=== PATIENT | female | born 1950 | race Caucasian/White ===

== ENCOUNTER 2017-02-27 08:18 | Inpatient (IN) | payer OTHER ==
[2016-12-23 09:45] VITALS: BMI 41.0
[2016-12-23 10:00] VITALS: BMI 41.0
--- NOTE | 2016-12-23 10:23 | PAT Medication Instructions ---
Service Date Dec 23, 2016. Current Home Medication List Folic Acid (Folic Acid), 800 MCG PO QAM Hydrochlorothiazide (Hctz *), 25 MG PO QAM Levothyroxine Sodium (Synthroid), 250 MCG PO QAM Tramadol (Ultram), 50 MG PO Q8H PRN for Pain [Vitamin D], 1 DOSE PO QAM [Vitamin E], 1 TAB PO QAM Medication Instructions For Your Scheduled Surgery - Hold the following medications starting 12/24/16: [Vitamin E], 1 TAB PO QAM - Hold the following medications the morning of surgery: [Vitamin D], 1 DOSE PO QAM Hydrochlorothiazide (Hctz *), 25 MG PO QAM Folic Acid (Folic Acid), 800 MCG PO QAM - Take the following medications the morning of surgery with a sip of water: Levothyroxine Sodium (Synthroid), 250 MCG PO QAM Tramadol (Ultram), 50 MG PO Q8H PRN for Pain (okay to take up to 4 hours prior to surgery if needed) - Take the following medications as scheduled the night before surgery: Tramadol (Ultram), 50 MG PO Q8H PRN for Pain If you have any questions please call us at [phone] (Lynette Medina PA-C) or [phone] or [phone]
[2016-12-23 11:06] LABS: BASO ABS # 0.07 K/uL (0-0.2); COMPLETE YES; EOS % 6.1 %; HEMATOCRIT 42.4 % (37-47); MEAN CELL VOLUME 87.6 fL (80-100); MEAN CORPUSCULAR HEMOGLOBIN 30.4 pg (25-34); MEAN CORPUSCULAR HGB CONC 34.7 g/dl (32-36); MEAN PLATELET VOLUME 9.7 fL (7.4-10.4); MONO % 8.4 %; NEUT % 57.5 %; PLATELET COUNT 282 K/uL (130-400); RED BLOOD COUNT 4.84 M/uL (4.2-5.4); URINE APPEARANCE CLEAR (CLEAR); URINE BILIRUBIN NEG (NEG); URINE COLOR YELLOW; URINE NITRITE NEG (NEG); URINE SPECIFIC GRAVITY 1.016 (1.000-1.030); UROBILINOGEN NEG (NEG); WHITE BLOOD COUNT 7.05 K/uL (4.8-10.8)
[2016-12-23 11:08] LABS: MANUAL MICROSCOPIC REQUIRED? NO; REVIEW REQ? NO
[2016-12-23 11:36] LABS: PARTIAL THROMBOPLASTIN RATIO 1.1; PROTHROMBIN TIME (PATIENT) 10.2 SECONDS (9.0-12.0)
[2016-12-23 11:49] LABS: BUN/CREATININE RATIO 13.6 (10-20); CALCIUM 9.4 mg/dl (8.5-10.1); CREATININE 0.76 mg/dl (0.60-1.20); POTASSIUM 4.4 mmol/L (3.5-5.1)
--- NOTE | 2016-12-23 12:56 | DIAGNOSTIC IMAGING REPORT ---
CHEST PREADMISSION(PA/LAT) HISTORY: Preop. COMPARISON: Chest 08/22/2007. FINDINGS: Stable 2.4 cm calcified granuloma within the periphery the right midlung zone. Calcified right peritracheal and hilar lymph nodes persist. No pneumothorax. No pleural effusions. No new focal lung consolidations. No evidence for pulmonary edema. The heart is normal in size. IMPRESSION: No significant change compared to the prior study. No acute process. Electronically signed by: Silvino Cain M.D. 12/23/2016 12:54 PM Dictated Date/Time: 12/23/2016 12:52 PM
--- NOTE | 2017-02-26 22:14 | HISTORY & PHYSICAL EXAMINATION ---
DATE OF ADMISSION: 02/27/2017 CHIEF COMPLAINT: Primary osteoarthritis of the right hip. HISTORY OF PRESENT ILLNESS: Dunia is a pleasant 66-year-old female who has had a chronic history of right hip pain. She does have a history of left total hip arthroplasty done at an outside institution. Her right hip pain is feeling similar. X-rays and clinical examination were diagnostic for primary osteoarthritis of the right hip. After failing extensive conservative treatment, she has elected to proceed with a right total hip arthroplasty. PAST MEDICAL HISTORY: Significant for hypertension, and hypothyroidism. MEDICATIONS: Include: Synthroid 250 mcg daily, hydrochlorothiazide 25 mg daily, and tramadol 50 mg. ALLERGIES: LATEX. PAST SURGICAL HISTORY: Significant for left total knee arthroplasty, a left total hip arthroplasty, surgery for endometriosis and surgery for broken jaw. FAMILY HISTORY: Noncontributory. SOCIAL HISTORY: She is . Never drinks. Denies any tobacco or IV drug use. She has 2 kids. REVIEW OF SYSTEMS: She complains of right hip pain. All other pertinent review of systems are negative. PHYSICAL EXAMINATION: GENERAL: She is awake, alert and oriented x3. She is in no apparent distress. She is very pleasant. HEENT: Pupils are equal, round and reactive to light. Extraocular motion intact. Oral mucosa is pink and moist. HEART: Regular rate per radial pulse. LUNGS: Ruchi symmetrically bilaterally with no audible breath sounds. ABDOMEN: Soft, nontender, nondistended. MUSCULOSKELETAL: On physical examination of the right hip, she ambulates independently without any significant limp. She does have pain with forced internal and external rotation of her hip and the pain is deep within the groin. She has very mild trochanteric bursal tenderness as well. IMAGING: X-rays of the hip do show advanced osteoarthritis with superior lateral osteophyte formation, and joint space collapse. IMPRESSION: Primary osteoarthritis of the right hip. PLAN: We will proceed with a Biomet taper lock right total hip arthroplasty. Postoperatively, she will be started on aspirin for DVT prophylaxis and kept in the hospital for 2 midnights for postoperative medical management. KATE
[~2017-02-27] VITALS: Ht 157.5 cm; Wt 41.3 kg
[2017-02-27] VITALS (7 sets, daily range): BP systolic 108–172; BP diastolic 65–85; PULSE 61–76; TEMP 32.6–37.2; O2SAT 92–100; Ht 157.5 cm; Wt 41.3 kg
[~2017-02-27 08:18] MED LIST: ACETAMINOPHEN 500 MG TAB PO SCH; BUPIVACAINE 0.5 % 5 MG/1 ML PF 10ML VIAL ONE; CEFAZOLIN 2000 MG/60 ML D5W 60 ML IV SCH; FAMOTIDINE 20 MG TAB PO SCH; FOLI800T PO; GABAPENTIN 300 MG CAP PO SCH; HYDC25 PO; LACTATED RINGER'S 1000ML 1,000 ML IV SCH; LACTATED RINGER'S 1000ML IV SCH; ROPIVACAINE 5MG/ML 30 ML 150 MG, BUPIVACAINE/EPINEPHR 0.5% MPF 30 ML, KETOROLAC TROMETH... INFIL SCH; VITAMIN D PO; VITAMIN E PO
[2017-02-27] MEDS ORDERED: PROPOFOL IV EMULSION 10 MG/ML 20 ML VIAL IV ONE (11:39)
[2017-02-27] MEDS ORDERED: FENTANYL CITRATE INJ 50 MCG/1 ML 2 ML VIAL ONE ×2 (11:39→14:35)
[2017-02-27] MEDS ORDERED: MIDAZOLAM HCL 1 MG/ML 2ML VIAL ONE (11:39)
[2017-02-27] MEDS ORDERED: ONDANSETRON INJ 2 MG/ML 2 ML VIAL ONE (11:39)
[2017-02-27] MEDS ORDERED: LIDOCAINE HCL 2% 2 ML VIAL (20MG/ML) ONE (11:39)
--- NOTE | 2017-02-27 11:52 | History & Physical Bridge Note ---
H&P Re-Evaluation Bridge Note: I have examined the patient, reviewed the History & Physical and in the interval since the performance of the History & Physical I have noted the following changes of clinical significance: No changes noted
[2017-02-27] MEDS ORDERED: ORTHO JOINT ANESTHETIC ONE (12:09)
[2017-02-27] MEDS ORDERED: BACITRACIN 50000 UNIT VIAL ONE (12:10)
[2017-02-27] MEDS: TRANEXAMIC ACID INJ 1,000 MG in SODIUM CHLORIDE 0.9% 100ML 100 ML IV SCH ×2 (12:10→16:47)
[2017-02-27] MEDS ORDERED: PHENYLEPHRINE HCL INJ 10 MG/ML VIAL ONE (12:51)
[2017-02-27] MEDS ORDERED: EpHEDrine SULFATE INJ 50 MG/ML AMP ONE (12:51)
[2017-02-27] MEDS ORDERED: METOCLOPRAMIDE HCL INJ 5 MG/ML 2 ML VIAL ONE (12:51)
[2017-02-27] MEDS ORDERED: EpHEDrine SULFATE INJ 50 MG/ML AMP IV PRN (13:00)
[2017-02-27] MEDS ORDERED: PROMETHAZINE HCL INJ 6.25 MG in SODIUM CHLORIDE 0.9% 50ML 50 ML IV PRN (13:00)
[2017-02-27] MEDS ORDERED: FENTANYL CITRATE INJ 50 MCG/1 ML 2 ML VIAL IV PRN (13:00)
[2017-02-27] MEDS ORDERED: ATROPINE SULFATE 0.1 MG/ML 5ML SYR IV PRN (13:00)
[2017-02-27] MEDS ORDERED: ONDANSETRON INJ 2 MG/ML 2 ML VIAL IV PRN ×2 (13:00→15:00)
[2017-02-27] MEDS ORDERED: ETOMIDATE 2 MG/ML 20 ML VIAL IV ONE (14:34)
--- NOTE | 2017-02-27 14:41 | DIAGNOSTIC IMAGING REPORT ---
INTRAOPERATIVE RADIOGRAPH CLINICAL HISTORY: Right hip arthroplasty. Fluoroscopy time: 33 seconds. FINDINGS: A single spot fluoroscopic view of the right hip is presented. A bipolar right hip arthroplasty is in near-anatomic alignment. A single cortical lag screw transfixes the acetabular cup. There is no evidence of fracture on this fluoroscopic view. IMPRESSION: Intraoperative image from a right hip arthroplasty procedure as above. Electronically signed by: Mandeep Cruz M.D. 02/27/2017 2:39 PM Dictated Date/Time: 02/27/2017 2:38 PM
--- NOTE | 2017-02-27 14:55 | [facility] Post Operative Brief Note ---
Immediate Operative Summary Operative Date Feb 27, 2017. Pre-Operative Diagnosis Primary osteoarthritis of right hip Post-Operative Diagnosis Same as preop Procedure(s) Performed Right Total Hip Arthroplasty, uncemented, anterior approach Surgeon Dr. Lemos Medical Sales Representative Surgeon(s) Oumar Stein PA-C Estimated Blood Loss 200 ML Findings as above Specimens A: right femoral head Complication(s) None Disposition Recovery Room / PACU
[2017-02-27] MEDS ORDERED: MAGNESIUM HYDROXIDE SUSP 30 ML UDC PO PRN (15:00)
[2017-02-27] MEDS ORDERED: SILVER SULFADIAZINE 1% CR 50 GM JAR EXT PRN (15:00)
[2017-02-27] MEDS ORDERED: METOCLOPRAMIDE HCL INJ 5 MG/ML 2 ML VIAL IV PRN (15:00)
[2017-02-27] MEDS ORDERED: BISACODYL 10 MG SUPP PR PRN (15:00)
[2017-02-27] MEDS ORDERED: MoRPHine SULFATE 2 MG/ML CARP IV PRN (15:00)
[2017-02-27] MEDS ORDERED: SOD PHOSPHATE/SOD BIPHOSPHATE ENEMA 132 ML BTL PR PRN (15:00)
--- NOTE | 2017-02-27 15:29 | Anesthesiology Progress Note ---
Anesthesia Post Op Note Date & Time Feb 27, 2017 at 15:29 Vital Signs Pain Intensity: 0 Vital Signs Past 12 Hours Date Time Temp Pulse Resp B/P (MAP) Pulse Ox O2 Delivery O2 Flow Rate FiO2 02/27/17 15:20 61 13 116/62 97 Nasal Cannula 2 02/27/17 15:12 36.7 67 20 105/62 96 Nasal Cannula 2 02/27/17 09:03 36.7 67 18 172/85 94 Room Air Notes Mental Status: alert / awake / arousable, participated in evaluation Pt Amnestic to Procedure: Yes Nausea / Vomiting: adequately controlled Pain: adequately controlled Airway Patency, RR, SpO2: stable & adequate BP & HR: stable & adequate Hydration State: stable & adequate Neuraxial Anesthesia: was administered, sensory block is resolving Anesthetic Complications: no major complications apparent Pt doing well.
--- NOTE | 2017-02-27 15:40 | DIAGNOSTIC IMAGING REPORT ---
RIGHT PELVIS/UNILATERAL HIP 1 VIEW CLINICAL HISTORY: Right hip osteoarthritis. Postoperative evaluation. COMPARISON: Pelvis radiograph June 03, 2016. FINDINGS: Alignment of the total right hip arthroplasty is anatomic. There is an acetabular screw. There is no periprosthetic fracture or unexpected radiopaque foreign body. Alignment of the total left hip arthroplasty remains anatomic. IMPRESSION: Expected findings following total right hip arthroplasty. Electronically signed by: Nato Quintanilla M.D. 02/27/2017 3:39 PM Dictated Date/Time: 02/27/2017 3:38 PM
--- NOTE | 2017-02-27 16:20 | OPERATIVE REPORT ---
DATE OF OPERATION: 02/27/2017 PREOPERATIVE DIAGNOSIS: Primary osteoarthritis of the right hip. POSTOPERATIVE DIAGNOSIS: Same. PROCEDURE: Right total hip arthroplasty through an anterior approach. SURGEON: Dr. Andre Lemos. INTELLIGENCE OFFICER BASIC: James Stein PA-C, whose assistance was necessary for holding and positioning of the leg and helping with retraction. ANESTHESIA: Spinal. COMPLICATIONS: None. CONDITION: Stable to PACU. IMPLANTS USED: I used a Biomet ASI Taperloc total hip arthroplasty with a size 50 mm acetabulum with a 36 mm liner and a single 20 mm screw, a size 11 standard offset pressfit stem and a ceramic 36 mm standard neck head. INDICATIONS: Dunia is a pleasant 66-year-old female who presented to my office with increasing right hip pain. X-rays and clinical examination were diagnostic for primary osteoarthritis of the right hip. After failing conservative treatment, she elected to undergo a right total hip arthroplasty. DESCRIPTION OF PROCEDURE: On 02/27/2017 she arrived at [facility] for the above procedure. She was seen in the preoperative holding area and the operative extremity was identified and signed. She was given a preoperative antibiotic and a spinal anesthetic. She was taken back to the operating room, laid on the table in supine position and given basic sedation. The right leg was brought out to a purist leg positioner and the right hip was then prepped and draped in a sterile fashion. Time-out was done and the patient and operative extremity was properly identified. An incision was made directly over the tensor fascia. Dissection was taken down through the fascia and the tensor was pushed laterally and the sartorius pushed medially. The reflected head of the rectus was then elevated off the superior acetabulum and elevated off of the anterior capsule. The capsule was exposed. The intertrochanteric vessels were ligated. A capsulotomy was performed. The femoral neck was then resected at the intertrochanteric line and the femoral head was removed. The acetabulum was then exposed. Sequential reaming up to a size 49 reamer was done. A size 50 acetabulum was then impacted into place. A single 6.5 mm x 20 mm screw was placed as a derotational screw and a 36 mm liner was snapped into place. The proximal femur was then exposed. Sequential broaching up to a size 11 broach was done. A standard femoral head was used, the hip was reduced and multiple x-rays were taken. I was happy with the overall placement and alignment. The broach was then removed. The final implant was then impacted into place. A 36 mm standard neck ceramic head was then impacted into place. It was once again reduced. Final x-rays showed anatomic alignment of the right hip. The capsule was then repaired. The wound was irrigated. The surrounding soft tissues were injected with 100 mL orthopedic pain control cocktail. The fascia was then closed with 0 Vicryl, skin was closed with 2-0 Vicryl and 3-0 V-Loc suture and a Prineo dressing. She was then placed in a soft dressing and taken to the postanesthesia care unit in stable condition. She tolerated the procedure well. I attest to the content of the Intraoperative Record and any orders documented therein. Any exception s are noted below.
[2017-02-27] MEDS: ACETAMINOPHEN IV SCH (18:20)
[2017-02-27] MEDS: SODIUM CHLORIDE 0.9% 1000ML 1,000 ML IV SCH (18:20)
[2017-02-27] MEDS: KETOROLAC TROMETHAMINE 15 MG/ML VIAL IV. SCH (18:21)
[2017-02-27] MEDS: CEFAZOLIN IV 2,000 MG in DEXTROSE 5% 50ML 50 ML IV SCH (20:07)
[2017-02-27] MEDS: SENNA 8.6 MG TAB PO SCH (20:47)
[2017-02-27] MEDS: ASPIRIN 325 MG ECTAB PO SCH (20:47)
[2017-02-27] MEDS: LISINOPRIL 10 MG TAB PO SCH (20:47)
[2017-02-27] MEDS: DOCUSATE SODIUM 100 MG CAP PO SCH (20:47)
[2017-02-27] MEDS: OXYCODONE HCL IR 5 MG TAB (IMMEDIATE RELEASE) PO PRN (20:48)
[2017-02-28] MEDS: KETOROLAC TROMETHAMINE 15 MG/ML VIAL IV. SCH ×5 (00:11→23:21)
[2017-02-28] MEDS: SODIUM CHLORIDE 0.9% 1000ML 1,000 ML IV SCH ×2 (00:11→10:35)
[2017-02-28] MEDS: ACETAMINOPHEN IV SCH ×2 (01:22→10:34)
[2017-02-28 03:27] VITALS: BP 116/64; PULSE 73; TEMP 36.7; O2SAT 95
[2017-02-28] MEDS: OXYCODONE HCL IR 5 MG TAB (IMMEDIATE RELEASE) PO PRN ×3 (03:27→16:49)
[2017-02-28] MEDS: CEFAZOLIN IV 2,000 MG in DEXTROSE 5% 50ML 50 ML IV SCH (03:28)
[2017-02-28] MEDS: LEVOTHYROXINE 150 MCG TAB PO SCH (05:29)
[2017-02-28 06:04] LABS: BASO % 0.2 %; BASO ABS # 0.02 K/uL (0-0.2); COMPLETE YES; EOS % 0.3 %; HEMATOCRIT 31.2 % (37-47); IG% 0.3 %; LYMPH % 9.2 %; LYMPH ABS # 1.09 K/uL (1.2-3.4); MEAN CELL VOLUME 89.1 fL (80-100); MEAN CORPUSCULAR HGB CONC 33.7 g/dl (32-36); MEAN PLATELET VOLUME 9.7 fL (7.4-10.4); MONO % 9.7 %; NEUT % 80.3 %; PLATELET COUNT 234 K/uL (130-400); WHITE BLOOD COUNT 11.81 K/uL (4.8-10.8)
[2017-02-28 06:43] LABS: BUN/CREATININE RATIO 18.8 (10-20); CALCIUM 8.1 mg/dl (8.5-10.1); CREATININE 0.67 mg/dl (0.60-1.20); POTASSIUM 4.3 mmol/L (3.5-5.1)
[2017-02-28 07:19] VITALS: BP 106/55; PULSE 71; TEMP 37.1; O2SAT 95
--- NOTE | 2017-02-28 08:29 | PROGRESS NOTE ---
DATE: 02/28/2017 CHIEF COMPLAINT: Status post right total hip arthroplasty postop day #1. PROGRESS: Dunia was seen and examined at bedside today. Overall, she is doing very well. She says she has little weakness in her right leg, but has to be expected. She was able to be walking up and down the hallways last night. She has very little pain and no other complaints. PHYSICAL EXAMINATION: RIGHT HIP: The dressing is clean and dry. She is able to hold her ankle up off the bed and her knee in hyperextension. She has no numbness on the anterior thigh. She has good dorsiflexion and plantarflexion of her right ankle. Sensation is intact. LABORATORIES: She has an H&H today of 10.5 and 31.2. Her white count is 11.8. Her glucose is 116. Her vital signs are all stable on room air. She is voiding on her own. X-rays postoperatively of the right hip show the prosthesis to be in anatomical alignment without any evidence of fracture, dislocation or loosening. IMPRESSION: Status post right total hip arthroplasty postoperative day #1. PLAN: At this point, she is doing well. She will get physical therapy today to be up and ambulating. Tomorrow the nursing staff will change her dressing, pull the drain and we will likely discharge her to home. KATE
[2017-02-28] MEDS: DOCUSATE SODIUM 100 MG CAP PO SCH ×2 (09:43→21:40)
[2017-02-28] MEDS: ASPIRIN 325 MG ECTAB PO SCH ×2 (09:44→21:39)
[2017-02-28] MEDS: FoLIC ACID TAB 400 MCG TAB PO SCH (09:44)
[2017-02-28] MEDS: MULTIVITAMIN TAB PO SCH (09:45)
[2017-02-28] MEDS: HYDROCHLOROTHIAZIDE 25 MG TAB PO SCH (09:45)
[2017-02-28] MEDS: PANTOprazole SOD 40 MG TAB PO SCH (09:45)
[2017-02-28 12:00] VITALS: BP 109/65; PULSE 71; TEMP 37.3; O2SAT 96
[2017-02-28] MEDS ORDERED: ACETAMINOPHEN 500 MG TAB PO SCH (14:00)
[2017-02-28 14:57] VITALS: BP 110/68; PULSE 81; TEMP 37.1; O2SAT 95
[2017-02-28 16:00] VITALS: O2SAT 95
[2017-02-28] MEDS: SENNA 8.6 MG TAB PO SCH (21:39)
[2017-02-28] MEDS: LISINOPRIL 10 MG TAB PO SCH (21:39)
[2017-02-28] MEDS: ACETAMINOPHEN 500 MG TAB PO SCH (21:40)
[2017-02-28 23:31] VITALS: BP 114/65; PULSE 69; TEMP 36.6; O2SAT 94
[2017-03-01] MEDS: ACETAMINOPHEN 500 MG TAB PO SCH (06:02)
[2017-03-01] MEDS: KETOROLAC TROMETHAMINE 15 MG/ML VIAL IV. SCH ×2 (06:02→12:34)
[2017-03-01] MEDS: LEVOTHYROXINE 150 MCG TAB PO SCH (06:02)
[2017-03-01 06:24] VITALS: BP 126/74; PULSE 72; TEMP 36.5; O2SAT 99
[2017-03-01] MEDS: DOCUSATE SODIUM 100 MG CAP PO SCH (07:16)
[2017-03-01] MEDS: ASPIRIN 325 MG ECTAB PO SCH (07:17)
[2017-03-01] MEDS: FoLIC ACID TAB 400 MCG TAB PO SCH (07:18)
[2017-03-01] MEDS: MULTIVITAMIN TAB PO SCH (07:18)
[2017-03-01] MEDS: HYDROCHLOROTHIAZIDE 25 MG TAB PO SCH (07:18)
[2017-03-01] MEDS: PANTOprazole SOD 40 MG TAB PO SCH (07:19)
[2017-03-01] MEDS ORDERED: RXC5 PO (07:22)
--- NOTE | 2017-03-01 07:23 | Discharge Instructions ---
Discharge Instructions Date of Service Mar 01, 2017. Admission Reason for Admission: Right Hip Osteoarthritis Discharge Discharge Diagnosis / Problem: Right Total Hip Discharge Goals Goal(s): Decrease discomfort, Improve function Activity Recommendations Activity Limitations: as noted below Driving or Machine Use: resume 3 days after discharge . Instructions / Follow-Up Instructions / Follow-Up Activity and Therapy Recommendations: * If you are using [facility] then Physical Therapy will be provided until they feel you are ready to start Outpatient Physical Therapy. If you are not using a Home Health agency then Outpatient Physical Therapy should start about 3-5 days from your day of surgery. Therapy will last about 3-6 weeks * You were shown a series of exercises in the hospital. Do these exercises three times each day including the exercises you were shown in physical therapy. * Get up and walk several times each day.~ For the first four weeks, try not to stand or walk for more than one hour at a time. If you do stand or walk for more than one hour, you will not hurt anything, but your leg will likely swell.~ ~ * As you feel comfortable, you may change from the walker or crutches to a cane and~then to independent walking. Medications: * Narcotic You will likely be sent home from the hospital with a prescription for the narcotic pain medication that worked best throughout your stay. * Aspirin Most patients will be required to take Aspirin 325mg twice a day for 6 weeks after surgery. This is obtained [id number] and a prescription is not necessary. * Other medications may be prescribed for specific circumstances. If you have any questions, please call the office at . * Resume previous home medications unless otherwise instructed TEDs/Elastic Stockings: The white elastic stockings help limit swelling and prevent blood clots from forming in your legs. The more you wear them, the more they work. Wear them for six weeks. Dressing Care: You will likely have a Prineo dressing covering your incision. This looks like a glued on clear mesh dressing. Do not remove this dressing until you follow- up in my office in 2-3 weeks. Its pretty hard to peel it off. You may leave the Prineo dressing uncovered or cover it if it is draining a little bit. No further dressing care is required Showering: You may shower 3 days from the day of surgery. Leave the Prineo dressing intact and let the soapy shower water run over it. Do not scrub or soak the dressing or the incision. Things To Watch For: * Drainage from the incision site that occurs more than one week after your surgery. * Increased redness at the incision site. * Fever above 102 degrees Fahrenheit. * Unusual chest pain or shortness of breath. * Call [facility] at with any of the above problems Follow-Up Visit: Follow-up with Dr. Lemos 2-3 weeks after your day of surgery. An appointment was probably scheduled when you signed-up for surgery in the office. If you have any questions call Office Instructions: More detailed instructions as well as Frequently Asked Questions were provided in a folder by our office when you signed-up for surgery. Please review these instructions when you get home. If you have any further questions or concerns, please feel free to call the office at [phone] Current Hospital Diet Patient's current hospital diet: Regular Diet Discharge Diet Recommended Diet: Regular Diet Procedures Procedures Performed: Right Total Hip Arthroplasty, uncemented, anterior approach Pending Studies Studies pending at discharge: no Medical Emergencies . Who to Call and When: Medical Emergencies: If at any time you feel your situation is an emergency, please call [phone] immediately. . Non-Emergent Contact Non-Emergency issues call your: Surgeon Call Non-Emergent contact if: wound has increased drainage, wound has increased redness . "Provider Documentation" section prepared by Andre Lemos. . VTE Core Measure Inpt VTE Proph given/why not?: Other Anticoagulation (Aspirin 325mg twice a day for 6 weeks)
--- NOTE | 2017-03-01 08:48 | PROGRESS NOTE ---
DATE: 03/01/2017 CHIEF COMPLAINT: Status post right anterior total hip, postop day #2. PROGRESS: Dunia was seen and examined at bedside today. Overall, she is doing very well. She has been working well with physical therapy. Her dressing was changed and drain was pulled earlier this morning. She has been having some diarrhea, but otherwise no complaints. PHYSICAL EXAMINATION: RIGHT HIP: The dressing is intact. There is a little ecchymosis in the region. She does have full hyperextension of her knee, her quads functioning properly. She has active dorsiflexion and plantarflexion of her right ankle. IMPRESSION: Status post right total hip arthroplasty, postop day #2. PLAN: At this point, she is doing well. She will be seen by physical therapy again this morning. If everything is going well, she will be discharged to home with oral pain medications. KATE
[2017-03-01 09:07] VITALS: BP 126/74; PULSE 72; TEMP 36.5; O2SAT 99
[2017-03-01] MEDS: OXYCODONE HCL IR 5 MG TAB (IMMEDIATE RELEASE) PO PRN (10:28)
--- NOTE | 2017-03-01 19:05 | DISCHARGE SUMMARY ---
DISCHARGE DIAGNOSIS: Primary osteoarthritis of the right hip. PROCEDURE: Right total hip arthroplasty on 02/27/[address] Andre Lemos. DISCHARGE INSTRUCTIONS: 1. Oxycodone 5-10 mg every 4 hours as needed for pain. 2. Tramadol 50 mg every 8 hours as needed for pain. 3. Folic acid 800 mcg daily. 4. HCTZ 25 mg daily. 5. Synthroid 150 mcg daily. 6. Lisinopril 1 tab daily. 7. Weightbear as tolerated. 8. Follow up with Dr. Lemos in 2 weeks. 9. Call the office of Dr. Lemos with any questions or concerns. HOSPITAL COURSE: Dunia is a pleasant 66-year-old female who presented to my office with chronic right hip pain. X-rays and clinical examination were diagnostic for primary osteoarthritis of the right hip. After failing years of conservative treatment, she elected to undergo a right total hip arthroplasty. On 02/27/2017, she arrived at [facility] and underwent a right total hip arthroplasty without complications. Postoperatively, she was discharged to general orthopedic floor. Her hospital course was uneventful. On postop day #1, her H&H was stable at 10.5 and 31.2. She was able to ambulate well with physical therapy. Later that day, she started to have a little bit of diarrhea. On postop day #2, the dressing was changed. She continued to work well with physical therapy and she was subsequently discharged to home with oral pain medications and the above instructions.
[2017-04-04] MEDS ORDERED: TRAM-10 PO (09:42)
[2017-04-04] MEDS ORDERED: LEVO150T9 PO (09:46)
[2017-04-04] MEDS ORDERED: LISI-461 PO (13:15)
[2017-04-22] MEDS ORDERED: CEPH500C2 PO (07:49)
[2017-04-24] MEDS ORDERED: SULF800T23 PO (11:54)
[2017-04-24] MEDS ORDERED: SULF400T7 PO (12:11)
[2017-06-10] MEDS ORDERED: ACET1TAB84 PO (14:46)
== END 2017-03-01 12:25 | disposition home health service (06) | DRG 470 ==
LOC: C.ACU 08:18 → C.3E 08:50 → ENRESERV 15:34
PROVIDERS: ADMIT Orthopaedic Surgery; ATTEND Orthopaedic Surgery
PROC: 0SR9039 Replacement of Right Hip Joint with Ceramic Synthetic Substitute, Cemented, Open Approach (ICD-10-PCS; principal; 2017-02-27 10:40)
DX: M16.11 Unilateral primary osteoarthritis, right hip (principal); I10 Essential (primary) hypertension; E03.9 Hypothyroidism, unspecified; Z96.642 Presence of left artificial hip joint

== ENCOUNTER 2017-04-04 18:30 | Emergency (ER) | payer OTHER ==
[~2017-04-04] VITALS: Ht 154.9 cm; Wt 105.0 kg
[~2017-04-04 18:30] MED LIST changes: -ACETAMINOPHEN 500 MG TAB PO SCH; -BUPIVACAINE 0.5 % 5 MG/1 ML PF 10ML VIAL ONE; -CEFAZOLIN 2000 MG/60 ML D5W 60 ML IV SCH; -FAMOTIDINE 20 MG TAB PO SCH; -GABAPENTIN 300 MG CAP PO SCH; -LACTATED RINGER'S 1000ML 1,000 ML IV SCH; -LACTATED RINGER'S 1000ML IV SCH; +LEVO150T9 PO; +LISI-461 PO; -ROPIVACAINE 5MG/ML 30 ML 150 MG, BUPIVACAINE/EPINEPHR 0.5% MPF 30 ML, KETOROLAC TROMETH... INFIL SCH; +RXC5 PO; +TRAM-10 PO
[2017-04-04 18:35] VITALS: TEMP 36.9; Ht 154.9 cm; Wt 105.0 kg
--- NOTE | 2017-04-04 19:55 | DIAGNOSTIC IMAGING REPORT ---
LEFT RIBS UNILATERAL WITH PA CHEST CLINICAL HISTORY: contusion posterior left side s/p fall pain. Trauma. COMPARISON STUDY: None FINDINGS: Negative left ribs. No acute bony abnormality. Lungs are clear. No evidence pneumothorax. Calcified granuloma peripheral right midlung IMPRESSION: Negative study The above report was generated using voice recognition software. It may contain grammatical, syntax or spelling errors. Electronically signed by: Soy Macias M.D. 04/04/2017 7:54 PM Dictated Date/Time: 04/04/2017 7:52 PM
--- NOTE | 2017-04-04 19:56 | DIAGNOSTIC IMAGING REPORT ---
RIGHT FOREARM 2 VIEWS ROUTINE CLINICAL HISTORY: pain s/p fall Right trauma. Pain. COMPARISON: None. DISCUSSION: The bones and joint spaces appear intact. There is no evidence of fracture, dislocation or bony disease. There is no evidence for soft tissue swelling. IMPRESSION: Negative study. The above report was generated using voice recognition software. It may contain grammatical, syntax or spelling errors. Electronically signed by: Soy Macias M.D. 04/04/2017 7:55 PM Dictated Date/Time: 04/04/2017 7:54 PM
--- NOTE | 2017-04-04 19:57 | DIAGNOSTIC IMAGING REPORT ---
RIGHT KNEE 3 VIEWS CLINICAL HISTORY: right knee pain Right pain. Trauma. COMPARISON: None. DISCUSSION: Generalized degenerative change of all major joint compartments. This is most prominent involving the lateral compartment. No acute bony abnormality. Cortical margins are intact. There is no evidence for soft tissue swelling. IMPRESSION: Degenerative change. No acute bony abnormality. The above report was generated using voice recognition software. It may contain grammatical, syntax or spelling errors. Electronically signed by: Soy Macias M.D. 04/04/2017 7:56 PM Dictated Date/Time: 04/04/2017 7:55 PM
[2017-04-04] MEDS ORDERED: ASPI325T39 PO (20:01)
[2017-04-04] MEDS ORDERED: TRAZ50TA35 PO (20:01)
[2017-04-04] MEDS ORDERED: HYDR25TA4 PO (20:01)
[2017-04-04 20:15] LABS: URINE APPEARANCE CLEAR (CLEAR); URINE BILIRUBIN NEG (NEG); URINE COLOR DK YELLOW; URINE NITRITE NEG (NEG); URINE PH 5.5 (4.5-7.5); URINE SPECIFIC GRAVITY 1.031 (1.000-1.030); UROBILINOGEN NEG (NEG); ZZUR CULT IF INDIC CLEAN CATCH NO
[2017-04-04 20:22] LABS: MANUAL MICROSCOPIC REQUIRED? NO; REVIEW REQ? NO
--- NOTE | 2017-04-04 20:26 | EMERGENCY ROOM VISIT NOTE ---
ED Visit Note First contact with patient: 18:49 CHIEF COMPLAINT: Fall, pain in right forearm, left back, right knee HISTORY OF PRESENT ILLNESS: This 66-year-old female patient presents to the emergency department complaining of pain in the right forearm, left back, and right knee which began early this morning after a fall. The patient states she had awoken in the middle of the night to go to the bathroom, and was using her walker to help her get there, when she got her walker caught on something and she fell. The patient states she fell into the bedside table, and now complains of severe left sided mid-back pain. There is increased pain with deep breathing or coughing. Attempting to sit up from a lying position is painful. Denies shortness of breath or coughing up blood. The patient rates the pain as sharp and 7/10. The patient has taken nothing for relief of the pain. No previous fractures to the ribs. The patient does have full range of motion of all joints and extremities, however, movement of the wrist does cause discomfort. The patient reports chronic right knee pain, however, states since right hip replacement a few weeks ago, the knee pain seems to be worsening. The patient denies any other injury. The patient denies any abdominal pain, nausea, or vomiting. The patient denies urinary symptoms including dysuria or hematura. REVIEW OF SYSTEMS: A 6 system review of systems was completed with positives and pertinent negatives listed in the HPI. ALLERGIES: Latex MEDICATIONS: OxyIR, hydrochlorothiazide, folic acids, tramadol, lisinopril, Synthroid. Pt's last dose of narcotics was 2 tramadol last evening. PMH: Recent hip replacement, hypertension, hypothyroidism SOCIAL HISTORY: She lives locally with her family. She denies drug, alcohol, tobacco use. PHYSICAL EXAM: VITALS: Vitals are noted on the nurse's note and reviewed by myself. Vital signs stable. GENERAL: 66-year-old female, in no acute distress, nondiaphoretic, well- developed well-nourished. LUNGS: Clear to auscultation and breath sounds equal, no wheezes, rales, or rhonchi. HEART: Heart sounds are regular without murmurs, ectopy, gallop, or rub. CHEST: The left posterior chest wall is tender to palpation over the lower ribs but there is no fracture crepitus and no ecchymosis. There is a significant bruise noted over the left flank, overlying ribs 10-12 There is no tachypnea or dyspnea. ABDOMEN: Positive bowel sounds x 4. Normal tympanic percussion. Soft, nontender, without masses or organomegaly. No guarding or rebound tenderness. + CVA tenderness on the left, however, bruising noted on physical examination in this area in the back. MUSCULOSKELETAL: Discomfort on the lateral aspect of right forearm with small bruise noted. The patient does have full range of motion of all distal extremities despite discomfort. Radial pulse 2+. Capillary refill of upper extremity <2 seconds. The right knee is not swollen. There is no ecchymosis. There is no joint effusion present. The patient is tender throughout the knee. There is no joint line tenderness. The patella does subluxate. Range of motion is full. Strength of the quads and hamstrings is 5/5. Parish's is Duane's and Anterior Drawer tests are Negative. There is no discomfort or laxity with varus and valgus stressing. The foot and toes are warm and well-perfused. Dorsalis pedis pulse 2+. NEURO: Patient was alert and oriented to person place and time. RADIOLOGY: X-Ray chest with left rib: FINDINGS: Negative left ribs. No acute bony abnormality. Lungs are clear. No evidence pneumothorax. Calcified granuloma peripheral right midlung IMPRESSION: Negative study X-Ray Right forearm: DISCUSSION: The bones and joint spaces appear intact. There is no evidence of fracture, dislocation or bony disease. There is no evidence for soft tissue swelling. IMPRESSION: Negative study. X-Ray Right knee: DISCUSSION: Generalized degenerative change of all major joint compartments. This is most prominent involving the lateral compartment. No acute bony abnormality. Cortical margins are intact. There is no evidence for soft tissue swelling. IMPRESSION: Degenerative change. No acute bony abnormality. EMERGENCY DEPARTMENT COURSE: I examined the patient. X-rays of the chest with left rib detail was reviewed by myself and radiologist and show no fracture or acute process. X-ray of the right forearm were reviewed by myself and radiologist and were also negative for acute fracture. X-ray of the right knee was performed and reviewed by myself and radiologist and was negative for acute fracture. Right knee x-ray did show some degenerative changes throughout the joint. I did discuss these findings with the patient. I discussed with her proper treatment and management of her condition. I recommended close follow-up with her primary care provider and orthopedic surgeon regarding ongoing symptoms. The patient was discharged home in good condition. DIFFERENTIAL DIAGNOSIS: Rib fracture, kidney injury, distal forearm fracture, wrist fracture, knee fracture, osteoarthritis, bony malignancy causing chronic knee pain, contusion, costochondritis, and others. DIAGNOSIS: contusion of multiple sites, fall, back contusion, right knee pain TREATMENT and DISCHARGE INSTRUCTIONS: Get plenty of rest, and avoid extensive activity. Use warm, moist heat on the back for relief of discomfort. Use ice on the forearm and knee for decreased inflammation and discomfort. Please use a barrier device between ice pack and your skin, such as a towel or sheet. Use ice intermittently for 20 minutes a day for the first 2-3 days, then consider switching to heat for ongoing discomfort. You may consider taking Fish Oil 2000mg twice daily, Glucosamine as directed on the bottle, and Tumeric 500mg daily for relief of your arthritis and knee pain. Please follow-up closely with your PCP in 1-2 days regarding ongoing care and evaluation, and to ensure you do not develop a blood clot. Follow-up with Dr. Lemos regarding ongoing knee pain. Please use incentive spirometer to continue to take deep breaths. For pain control, you can use the following [id number] medicines (if >12 yo): - Regular strength (325mg/tab) Tylenol (acetaminophen) 2 tabs every 4-6 hours as needed. Do not exceed 12 tablets in a 24 hour period. Avoid taking more than 4 grams (4000 mg) of Tylenol per day. This includes any other sources of acetaminophen you may take on a regular basis. - Regular strength (200 mg/tab) Advil (ibuprofen) 1-2 tabs every 4-6 hours as needed. Do not exceed a dose of 3200 mg per day. You may take your narcotics which you have at home for breakthrough pain. We did complete a urinalysis in the emergency department, which was negative for blood in the urine. I do not feel that imaging of the kidneys is necessary at this time with this negative finding. If you experience worsening flank pain or if you notice blood in your urine, return to the emergency department or follow-up outpatient with your PCP for further evaluation and imaging of the kidneys. Current/Historical Medications Scheduled Aspirin (Aspirin Ec), 325 MG PO DAILY Hydrochlorothiazide (Hctz), 25 MG PO QAM Levothyroxine Sodium (Levothyroxine Sodium), 150 MCG PO DAILY Lisinopril (Lisinopril), 10 MG PO QPM Trazodone Hcl (Trazodone), 50 MG PO HS Scheduled PRN Tramadol (Ultram), 50 MG PO Q8H PRN for Pain Allergies Coded Allergies: NO KNOWN DRUG ALLERGIES (Unverified Allergy, Unknown, NONE, 02/27/17) Latex1 -Allergic Contact Dermititis (Verified Adverse Reaction, Mild, ITCHING IRRITATION, 02/27/17) Vital Signs Date Time Temp Pulse Resp B/P (MAP) Pulse Ox O2 Delivery O2 Flow Rate FiO2 04/04/17 18:35 36.9 79 16 170/80 95 Room Air Laboratory Results Test 04/04/17 20:00 Urine Color DK YELLOW Urine Appearance CLEAR (CLEAR) Urine pH 5.5 (4.5-7.5) Urine Specific [place] 1.031 (1.000-1.030) Urine Protein NEG (NEG) Urine Glucose (UA) NEG (NEG) Urine Ketones TRACE (NEG) Urine Occult Blood NEG (NEG) Urine Nitrite NEG (NEG) Urine Bilirubin NEG (NEG) Urine Urobilinogen NEG (NEG) Urine Leukocyte Esterase NEG (NEG) Departure Information Impression Primary Impression: Contusion of multiple sites Additional Impressions: Fall Right knee pain Contusion of back Dispostion Home / Self-Care Condition GOOD Referrals Lulu Mcbride D.O. (PCP) Patient Instructions ED Contusion Back, My [facility] Additional Instructions Get plenty of rest, and avoid extensive activity. Use warm, moist heat on the back for relief of discomfort. Use ice on the forearm and knee for decreased inflammation and discomfort. Please use a barrier device between ice pack and your skin, such as a towel or sheet. Use ice intermittently for 20 minutes a day for the first 2-3 days, then consider switching to heat for ongoing discomfort. You may consider taking Fish Oil 2000mg twice daily, Glucosamine as directed on the bottle, and Tumeric 500mg daily for relief of your arthritis and knee pain. Please follow-up closely with your PCP in 1-2 days regarding ongoing care and evaluation, and to ensure you do not develop a blood clot. Follow-up with Dr. Lemos regarding ongoing knee pain. Please use incentive spirometer to continue to take deep breaths. For pain control, you can use the following [id number] medicines (if >12 yo): - Regular strength (325mg/tab) Tylenol (acetaminophen) 2 tabs every 4-6 hours as needed. Do not exceed 12 tablets in a 24 hour period. Avoid taking more than 4 grams (4000 mg) of Tylenol per day. This includes any other sources of acetaminophen you may take on a regular basis. - Regular strength (200 mg/tab) Advil (ibuprofen) 1-2 tabs every 4-6 hours as needed. Do not exceed a dose of 3200 mg per day. You may take your narcotics which you have at home for breakthrough pain. We did complete a urinalysis in the emergency department, which was negative for blood in the urine. I do not feel that imaging of the kidneys is necessary at this time with this negative finding. If you experience worsening flank pain or if you notice blood in your urine, return to the emergency department or follow-up outpatient with your PCP for further evaluation and imaging of the kidneys. Problem Qualifiers Additional Impressions: Fall Encounter type: initial encounter Qualified Codes: W19.XXXA - Unspecified fall, initial encounter Right knee pain Chronicity: acute Qualified Codes: M25.561 - Pain in right knee Contusion of back Encounter type: initial encounter Laterality: left Qualified Codes: S20.222A - Contusion of left back wall of thorax, initial encounter
[2017-04-04 20:40] VITALS: BP 140/77; PULSE 74; O2SAT 96
== END 2017-04-04 20:41 | disposition home or self-care (01) ==
LOC: C.EDB 18:32 → C.EDD 20:41
DX: S20.222A Contusion of left back wall of thorax, initial encounter (principal); S50.11XA Contusion of right forearm, initial encounter; M79.631 Pain in right forearm; M25.561 Pain in right knee; M54.9 Dorsalgia, unspecified; W01.10XA Fall on same level from slipping, tripping and stumbling with subsequent striking against unspecified object, initial encounter; I10 Essential (primary) hypertension; E03.9 Hypothyroidism, unspecified; Z96.641 Presence of right artificial hip joint

== ENCOUNTER → 2017-05-21 | Outpatient (CLI) | payer OTHER ==
[~2017-05-21] MED LIST changes: +ACET1TAB84 PO; -FOLI800T PO; -HYDC25 PO; +HYDR25TA4 PO; -RXC5 PO; +SULF400T7 PO; +TRAZ50TA35 PO; -VITAMIN D PO; -VITAMIN E PO
--- NOTE | 2017-05-21 12:40 | MAMMOGRAPHY REPORT ---
BILATERAL DIGITAL SCREENING MAMMOGRAM WITH CAD: 05/21/2017 CLINICAL HISTORY: Routine screening. Patient has no complaints. TECHNIQUE: Current study was also evaluated with a Computer Aided Detection (CAD) system. Bilateral CC and MLO views were obtained. COMPARISON: Comparison is made to exams dated: 05/19/2016 mammogram, 05/16/2015 mammogram, 05/15/2014 m ammogram, 03/31/2012 mammogram, 04/01/2013 mammogram, and 03/28/2011 mammogram - [facility]. BREAST COMPOSITION: The tissue of both breasts is almost entirely fatty. FINDINGS: No suspicious masses, calcifications, or areas of architectural distortion are noted in ei ther breast. There has been no significant interval change compared to prior exams. IMPRESSION: ACR BI-RADS CATEGORY 1: NEGATIVE There is no mammographic evidence of malignancy. A 1 year screening mammogram is recommended. The pa tient will receive written notification of the results. Approximately 10% of breast cancers are not detected with mammography. A negative mammographic report should not delay biopsy if a clinically suggestive mass is present. Perla Good M.D. /:05/21/2017 09:02:21 [employer]: Donna GRAVES(R)(M), [facility] letter sent: Normal 1/2 BI-RADS Code: ACR BI-RADS Category 1: Negative
== END | disposition home or self-care (01) ==
LOC: C.MAMM 08:10
PROVIDERS: ATTEND Family Medicine
DX: Z12.31 Encounter for screening mammogram for malignant neoplasm of breast (principal)

== ENCOUNTER → 2017-06-29 | Outpatient (CLI) | payer OTHER ==
[~2017-06-29] MED LIST changes: -SULF400T7 PO
[2017-06-29 14:08] LABS: PARTIAL THROMBOPLASTIN RATIO 1.1; PROTHROMBIN TIME (PATIENT) 10.5 SECONDS (9.0-12.0)
[2017-06-29 14:12] LABS: BASO % 0.5 %; BASO ABS # 0.03 K/uL (0-0.2); COMPLETE YES; EOS % 7.2 %; IG% 0.3 %; LYMPH % 24.4 %; MEAN CELL VOLUME 85.5 fL (80-100); MEAN CORPUSCULAR HEMOGLOBIN 29.5 pg (25-34); MEAN CORPUSCULAR HGB CONC 34.5 g/dl (32-36); MEAN PLATELET VOLUME 9.6 fL (7.4-10.4); MONO % 11.6 %; PLATELET COUNT 273 K/uL (130-400); RED BLOOD COUNT 4.68 M/uL (4.2-5.4); WHITE BLOOD COUNT 6.14 K/uL (4.8-10.8)
[2017-06-29 14:13] LABS: URINE APPEARANCE CLEAR (CLEAR); URINE BILIRUBIN NEG (NEG); URINE COLOR YELLOW; URINE NITRITE NEG (NEG); URINE SPECIFIC GRAVITY 1.023 (1.000-1.030); UROBILINOGEN NEG (NEG)
[2017-06-29 14:16] LABS: MANUAL MICROSCOPIC REQUIRED? NO; REVIEW REQ? NO
[2017-06-29 14:19] LABS: BLOOD UREA NITROGEN 13 mg/dl (7-18); BUN/CREATININE RATIO 18.3 (10-20); C-REACTIVE PROTEIN 0.45 mg/dl (0-0.29); CALCIUM 9.6 mg/dl (8.5-10.1); CARBON DIOXIDE 25 mmol/L (21-32); CHLORIDE 107 mmol/L (98-107); CREATININE 0.69 mg/dl (0.60-1.20); GLUCOSE 100 mg/dl (70-99); POTASSIUM 3.6 mmol/L (3.5-5.1); SODIUM 141 mmol/L (136-145)
== END | disposition home or self-care (01) ==
LOC: C.LABBC 09:48
PROVIDERS: ATTEND Orthopaedic Surgery
DX: Z01.812 Encounter for preprocedural laboratory examination (principal); M17.11 Unilateral primary osteoarthritis, right knee

== ENCOUNTER 2017-07-31 06:05 | Inpatient (IN) | payer OTHER, MEDICARE ==
[2017-06-10 14:50] VITALS: BMI 42.0
--- NOTE | 2017-07-29 17:31 | HISTORY & PHYSICAL EXAMINATION ---
DATE OF ADMISSION: 07/31/2017 CHIEF COMPLAINT: Right knee pain. HISTORY OF PRESENT ILLNESS: Dunia is a pleasant 67-year-old female who has been dealing with chronic right knee pain. I did a right total hip arthroplasty on her about 8 months ago. She is doing extremely well with that. Unfortunately, she is having a lot of right knee pain. X-rays and clinical examination were diagnostic for primary osteoarthritis of her right knee. After failing extensive conservative treatment, she elected to proceed with a right total knee arthroplasty. PAST MEDICAL HISTORY: Significant for hypertension. PAST SURGICAL HISTORY: Significant for a left total knee arthroplasty and a right total hip arthroplasty about 8 months ago, endometriosis and a broken jaw. ALLERGIES: None. MEDICATIONS: Include Synthroid 200 mcg daily and hydrochlorothiazide 25 mg daily. SOCIAL HISTORY: She denies any tobacco, alcohol or IV drug use. FAMILY HISTORY: Noncontributory. REVIEW OF SYSTEMS: She complains of right knee pain. All other pertinent review of systems is negative. PHYSICAL EXAMINATION: GENERAL: She is awake, alert and oriented x3. She is in no apparent distress. She is very pleasant. HEENT: Pupils equal, round and reactive to light. Extraocular motion intact. Oral mucosa is pink and moist. HEART: Regular rate per radial pulse. LUNGS: Ruchi symmetrically bilaterally with no audible breath sounds. ABDOMEN: Soft, nontender, and nondistended. MUSCULOSKELETAL: On physical examination of her right knee, she has good range of motion. She has a few degrees shy of full extension. She has about 125 degrees of flexion. She has crepitus in range of motion. She has no varus or valgus instability. She has significant tenderness to palpation over the lateral joint line and the distal lateral femoral condyle. IMAGING DATA: X-rays of the right knee do show advanced osteoarthritis, mostly involving the lateral compartment. There is slight valgus deformity. There is joint space narrowing and osteophyte formation. IMPRESSION: Primary osteoarthritis of the right knee. PLAN: We will proceed with a Biomet right total knee arthroplasty. Postoperatively, she will be started on aspirin for DVT prophylaxis and kept in the hospital for postoperative medical management.
[2017-07-31] VITALS (8 sets, daily range): BP systolic 108–137; BP diastolic 68–76; PULSE 65–84; TEMP 36.3–37; O2SAT 91–97; Ht 157.5 cm; Wt 104.5 kg
[~2017-07-31] VITALS: Ht 157.5 cm; Wt 104.5 kg
[~2017-07-31 06:05] MED LIST changes: +ACETAMINOPHEN 500 MG TAB PO SCH; +CEFAZOLIN 2000MG IV PUSH 10 ML IV SCH; +FAMOTIDINE 20 MG TAB PO SCH; +GABAPENTIN 300 MG CAP PO SCH; +LACTATED RINGER'S 1000ML 1,000 ML IV SCH; +LACTATED RINGER'S 1000ML IV SCH; +ROPIVACAINE 5MG/ML 30 ML 150 MG, BUPIVACAINE 0.5% MPF INJ 30 ML, EpINEphrine HCL INJ 0.... INFIL SCH
[2017-07-31] MEDS: TRANEXAMIC ACID INJ 1,000 MG in SYRINGE 0 ML IV SCH ×2 (06:30→13:46)
[2017-07-31] MEDS ORDERED: EpHEDrine SULFATE INJ 50 MG/ML AMP IV PRN (07:15)
[2017-07-31] MEDS ORDERED: FENTANYL CITRATE INJ 50 MCG/1 ML 2 ML VIAL IV PRN (07:15)
[2017-07-31] MEDS ORDERED: ONDANSETRON INJ 2 MG/ML 2 ML VIAL IV PRN ×2 (07:15→16:00)
[2017-07-31] MEDS ORDERED: ATROPINE SULFATE 0.1 MG/ML 5ML SYR IV PRN (07:15)
[2017-07-31] MEDS ORDERED: BUPIVACAINE 0.5 % 5 MG/1 ML PF 10ML VIAL ONE (07:16)
[2017-07-31] MEDS ORDERED: MIDAZOLAM HCL 1 MG/ML 2ML VIAL ONE ×4 (07:45→14:46)
[2017-07-31] MEDS ORDERED: FENTANYL CITRATE INJ 50 MCG/1 ML 2 ML VIAL ONE (07:46)
[2017-07-31] MEDS ORDERED: PROPOFOL IV EMULSION 10 MG/ML 20 ML VIAL IV ONE ×2 (07:54→08:27)
[2017-07-31] MEDS ORDERED: PHENYLEPHRINE 100MCG/ML 5ML SYR ONE (08:30)
[2017-07-31] MEDS ORDERED: ORTHO JOINT ANESTHETIC ONE (14:25)
[2017-07-31] MEDS ORDERED: BACITRACIN 50000 UNIT VIAL ONE (14:26)
[2017-07-31] MEDS ORDERED: SODIUM CHLORIDE 0.9% INJ 10 ML VIAL ONE (14:27)
[2017-07-31] MEDS ORDERED: EpHEDrine SULFATE INJ 50 MG/ML AMP ONE (14:27)
[2017-07-31] MEDS ORDERED: DEXAMETHASONE SOD INJ 4 MG/ML VIAL ONE (14:47)
[2017-07-31] MEDS ORDERED: ONDANSETRON INJ 2 MG/ML 2 ML VIAL ONE (15:13)
[2017-07-31] MEDS ORDERED: METOCLOPRAMIDE HCL INJ 5 MG/ML 2 ML VIAL ONE (15:42)
--- NOTE | 2017-07-31 15:58 | [facility] Post Operative Brief Note ---
Immediate Operative Summary Operative Date Jul 31, 2017. Pre-Operative Diagnosis Primary Osteoarthritis Right Knee Post-Operative Diagnosis Primary Osteoarthritis Right Knee Procedure(s) Performed Right Total Knee Arthroplasty Surgeon Dr. Lemos Truck Driver Supervisor Surgeon(s) BENITEZ Bowers Estimated Blood Loss 25cc Findings as above Specimens A. Right Knee Bone and Tissue Complication(s) None Disposition Recovery Room / PACU
[2017-07-31] MEDS ORDERED: BISACODYL 10 MG SUPP PR PRN (16:00)
[2017-07-31] MEDS ORDERED: MAGNESIUM HYDROXIDE SUSP 30 ML UDC PO PRN (16:00)
[2017-07-31] MEDS ORDERED: METOCLOPRAMIDE HCL INJ 5 MG/ML 2 ML VIAL IV PRN (16:00)
[2017-07-31] MEDS ORDERED: SOD PHOSPHATE/SOD BIPHOSPHATE ENEMA 132 ML BTL PR PRN (16:00)
[2017-07-31] MEDS ORDERED: MoRPHine SULFATE 2 MG/ML CARP IV PRN (16:00)
[2017-07-31] MEDS ORDERED: CEFAZOLIN IV 2,000 MG in DEXTROSE 5% 50ML 50 ML IV SCH (16:00)
[2017-07-31] MEDS ORDERED: SILVER SULFADIAZINE 1% CR 50 GM JAR EXT PRN (16:00)
--- NOTE | 2017-07-31 16:41 | OPERATIVE REPORT ---
DATE OF OPERATION: 07/31/2017 PREOPERATIVE DIAGNOSIS: Primary osteoarthritis of the right knee. POSTOPERATIVE DIAGNOSIS: Same. PROCEDURE: Right total knee arthroplasty. SURGEON: Andre Lemos DO CREDIT SUPPORT COUNSELOR: James Stein PA-C, whose assistance was necessary for retraction and closure and assisted in positioning the leg. ANESTHESIA: Spinal with a right adductor nerve block. COMPLICATIONS: None. CONDITION: Stable to PACU. INDICATIONS FOR PROCEDURE: Dunia is a pleasant 67-year-old female who I recently did a total hip arthroplasty on. She has done well with that. Unfortunately, she developed significant right knee pain. X-rays and clinical examination were diagnostic for primary osteoarthritis of the right knee. After failing conservative treatment, she elected to undergo a right total knee arthroplasty. DESCRIPTION OF PROCEDURE: On 07/31/2017, she arrived at [facility] for the above procedure. She was seen in the preoperative holding area and the operative extremity was identified and signed. She was given a preoperative antibiotic, a spinal anesthetic, and a right adductor nerve block. She was taken back to the operating room, laid on the table in supine position and put under basic sedation. The right knee was then prepped and draped in sterile fashion. Time-out was done and the patient and operative extremity was properly identified. A midline incision was made directly over the patella. Dissection was taken down to the extensor mechanism. A medial parapatellar arthrotomy was used. The fat pad was left intact, the medial retinaculum was released and the synovium in the suprapatellar pouch was removed. A tourniquet was not used and hemostasis was controlled. The knee was then flexed. The meniscus and ACL and PCL were then removed. A drill was sent down the center of the femoral canal, followed by an intramedullary agata. Off that agata, a distal femoral cutting block was placed. An 11 mm was resected off the distal femur at 6 degrees of valgus. A posterior referencing guide was then used to measure the distal femur. The femur measured to be a size 67.5. Two drill holes were placed in 3 degrees of external rotation. The 4-in-1 cutting block was then impacted into place. Anterior, posterior and chamfer cuts were then made. The box was then impacted for the box cutting guide. The proximal tibia was then exposed. A drill was sent down the center of the tibial canal followed by an intramedullary agata. Off the agata, a proximal tibial resection guide was placed and 4 mm was resected off the low lateral side. The tibia was then measured to be a size 75. It was set in the appropriate rotation, drilled and then punched. The posterior aspect of the knee was then opened up. Any extra meniscal fragments or osteophytes were then removed. Trial implants were placed. The knee was brought through a full range of motion and felt to be stable. The patella was then everted and 8 mm was resected off the posterior aspect of the patella. The patella measured to be a size 31 and 3 drill holes were then placed. A trial patella was placed. The knee was brought through a full range of motion and felt to be stable. All trial implants were then removed. The surrounding soft tissues were injected with 100 mL of an orthopedic pain control cocktail. The wound was then irrigated with 3 liters of normal saline solution with bacitracin. The tibial, femoral and patellar components were cemented with Palacos-G cement and a final size 10 posterior stabilized bearing was then snapped into place and the anterior bar was locked. The knee was brought through a full range of motion and felt to be stable. The knee was then irrigated with 3 liters of normal saline solution with bacitracin. The extensor mechanism was then closed with #2 FiberWire sutures in the superior medial aspect and #1 Vicryl, both proximally and distally. Skin was closed with 2-0 Vicryl, 3-0 V-Loc and power. She was then placed in a soft dressing and taken to the postanesthesia care unit in stable condition. She tolerated the procedure well. I attest to the content of the Intraoperative Record and any orders documented therein. Any exception s are noted below.
--- NOTE | 2017-07-31 17:02 | DIAGNOSTIC IMAGING REPORT ---
R KNEE 1 OR 2 VIEWS ROUTINE HISTORY: 67 years-old Female AP/LATERAL IN PACU RIGHT KNEE status post right knee arthroplasty. Right knee degenerative joint disease COMPARISON: Right knee radiographs 04/04/2017 TECHNIQUE: 2 views of the right knee FINDINGS: Postoperative changes compatible with recent right knee total joint arthroplasty and patella resurfacing. Alignment is satisfactory. There is no periprosthetic fracture or retained foreign body. Surgical drain is noted with anterior midline skin power and expected postsurgical soft tissue swelling and deep tissue air. Chronic appearing fragmentation of the inferior pole patella is unchanged. IMPRESSION: Status post right knee total joint arthroplasty and patellar resurfacing without complication identified. The above report was generated using voice recognition software. It may contain grammatical, syntax or spelling errors. Electronically signed by: Doe Andujar M.D. 07/31/2017 5:01 PM Dictated Date/Time: 07/31/2017 4:59 PM
--- NOTE | 2017-07-31 17:06 | Anesthesiology Progress Note ---
Anesthesia Post Op Note Date & Time Jul 31, 2017 at 17:06 Vital Signs Pain Intensity: 0 Vital Signs Past 12 Hours Date Time Temp Pulse Resp B/P (MAP) Pulse Ox O2 Delivery O2 Flow Rate FiO2 07/31/17 16:45 62 15 116/78 97 Oxymask 2 07/31/17 16:35 36.5 64 15 125/67 98 Oxymask 3 07/31/17 16:25 65 15 116/75 98 Oxymask 3 07/31/17 16:16 36.6 62 16 126/57 97 Oxymask 10 07/31/17 06:40 36.6 77 18 137/72 95 Room Air Notes Mental Status: alert / awake / arousable, participated in evaluation Pt Amnestic to Procedure: Yes Nausea / Vomiting: adequately controlled Pain: adequately controlled Airway Patency, RR, SpO2: stable & adequate BP & HR: stable & adequate Hydration State: stable & adequate Neuraxial Anesthesia: was administered, sensory block is resolving Anesthetic Complications: no major complications apparent
[2017-07-31] MEDS: SODIUM CHLORIDE 0.9% 1000ML 1,000 ML IV SCH (19:00)
[2017-07-31] MEDS ORDERED: INFLUENZA ADMINISTRATION CHARGE ONE (19:00)
[2017-07-31] MEDS ORDERED: INFLUENZA VACCINE HIGH DOSE 65+ 0.5 ML SYR IM. ONE (19:00)
[2017-07-31] MEDS: OXYCODONE HCL IR 5 MG TAB (IMMEDIATE RELEASE) PO PRN (19:19)
[2017-07-31] MEDS: ACETAMINOPHEN IV 1,000 MG in EMPTY BAG 0 ML IV SCH (20:39)
[2017-07-31] MEDS: CEFAZOLIN IV 2,000 MG in SYRINGE 0 ML IV SCH (20:39)
[2017-07-31] MEDS: SENNA 8.6 MG TAB PO SCH (20:48)
[2017-07-31] MEDS: ASPIRIN 325 MG ECTAB PO SCH (20:49)
[2017-07-31] MEDS: DOCUSATE SODIUM 100 MG CAP PO SCH (20:49)
[2017-07-31] MEDS: LISINOPRIL 10 MG TAB PO SCH (20:49)
[2017-07-31] MEDS: TRAZODONE HCL 50 MG TAB PO SCH (21:53)
[2017-08-01] MEDS: SODIUM CHLORIDE 0.9% 1000ML 1,000 ML IV SCH ×2 (01:33→11:21)
[2017-08-01] MEDS: KETOROLAC TROMETHAMINE 30 MG/ML VIAL IV. SCH ×4 (01:34→18:52)
[2017-08-01 03:05] VITALS: BP 113/66; PULSE 62; TEMP 36.4; O2SAT 94
[2017-08-01] MEDS: ACETAMINOPHEN IV 1,000 MG in EMPTY BAG 0 ML IV SCH ×3 (04:03→19:52)
[2017-08-01] MEDS: CEFAZOLIN IV 2,000 MG in SYRINGE 0 ML IV SCH (04:03)
[2017-08-01 06:12] LABS: MEAN CELL VOLUME 85.5 fL (80-100); MEAN CORPUSCULAR HEMOGLOBIN 30.1 pg (25-34); MEAN CORPUSCULAR HGB CONC 35.2 g/dl (32-36); MEAN PLATELET VOLUME 9.5 fL (7.4-10.4); PLATELET COUNT 222 K/uL (130-400); RED BLOOD COUNT 3.86 M/uL (4.2-5.4); WHITE BLOOD COUNT 10.24 K/uL (4.8-10.8)
[2017-08-01] MEDS: LEVOTHYROXINE 150 MCG TAB PO SCH (06:21)
[2017-08-01 06:51] LABS: BUN/CREATININE RATIO 17.1 (10-20); CALCIUM 8.6 mg/dl (8.5-10.1); CREATININE 0.74 mg/dl (0.60-1.20); POTASSIUM 3.8 mmol/L (3.5-5.1)
[2017-08-01 08:00] VITALS: BP 128/75; PULSE 57; TEMP 36.4; O2SAT 94
--- NOTE | 2017-08-01 09:36 | PROGRESS NOTE ---
DATE: 08/01/2017 CHIEF COMPLAINT: Status post right total knee arthroplasty postop day #1. PROGRESS: Dunia was seen and examined at bedside today. Overall, she is doing very well. She has been already taking laps with physical therapy. Her pain is controlled. She has no complaints. PHYSICAL EXAMINATION: VITAL SIGNS: Her vital signs are all stable on room air. She is voiding on her own. RIGHT KNEE: The dressing is clean and dry. She has active dorsiflexion and plantarflexion of her right ankle and sensation is intact throughout. DATA: She has an H&H today of 11.6 and 33.0. Her glucose is 120. X-rays postoperatively of the right knee show the prosthesis to be in anatomic alignment without any evidence of fracture, dislocation or loosening. IMPRESSION: Status post right total knee arthroplasty postop day #1. PLAN: At this point, she is doing very well and happy with her progress. She will be continued to be seen by physical therapy. We will work on pain control today. Tomorrow, the nursing staff can change the dressing and will likely discharge her to home.
[2017-08-01] MEDS: MULTIVITAMIN TAB PO SCH (09:40)
[2017-08-01] MEDS: HYDROCHLOROTHIAZIDE 25 MG TAB PO SCH (09:40)
[2017-08-01] MEDS: ASPIRIN 325 MG ECTAB PO SCH ×2 (09:40→21:59)
[2017-08-01] MEDS: DOCUSATE SODIUM 100 MG CAP PO SCH ×2 (09:41→21:59)
[2017-08-01] MEDS: PANTOprazole SOD 40 MG TAB PO SCH (09:41)
[2017-08-01] MEDS: OXYCODONE HCL IR 5 MG TAB (IMMEDIATE RELEASE) PO PRN ×2 (09:42→16:46)
[2017-08-01 12:10] VITALS: BP 114/65; PULSE 62; TEMP 36.5; O2SAT 94
[2017-08-01 15:18] VITALS: BP 128/53; PULSE 65; TEMP 36.6; O2SAT 93
[2017-08-01] MEDS: LISINOPRIL 10 MG TAB PO SCH (21:00)
[2017-08-01] MEDS: TRAZODONE HCL 50 MG TAB PO SCH (21:59)
[2017-08-01] MEDS: SENNA 8.6 MG TAB PO SCH (21:59)
[2017-08-01 22:00] VITALS: BP 90/53; PULSE 71
[2017-08-01 23:10] VITALS: BP 98/61; PULSE 66; TEMP 36.6; O2SAT 96
[2017-08-02] MEDS: KETOROLAC TROMETHAMINE 30 MG/ML VIAL IV. SCH ×2 (00:13→06:19)
[2017-08-02] MEDS: ACETAMINOPHEN IV 1,000 MG in EMPTY BAG 0 ML IV SCH (03:47)
[2017-08-02] MEDS: OXYCODONE HCL IR 5 MG TAB (IMMEDIATE RELEASE) PO PRN ×2 (03:51→11:24)
[2017-08-02] MEDS: LEVOTHYROXINE 150 MCG TAB PO SCH (06:19)
[2017-08-02 06:44] VITALS: BP 111/70; PULSE 61; TEMP 36.8; O2SAT 96
[2017-08-02] MEDS: PANTOprazole SOD 40 MG TAB PO SCH (08:38)
[2017-08-02] MEDS: HYDROCHLOROTHIAZIDE 25 MG TAB PO SCH (08:38)
[2017-08-02] MEDS: MULTIVITAMIN TAB PO SCH (08:38)
[2017-08-02] MEDS: ASPIRIN 325 MG ECTAB PO SCH (08:38)
[2017-08-02] MEDS: DOCUSATE SODIUM 100 MG CAP PO SCH (08:39)
[2017-08-02] MEDS ORDERED: RXC5 PO (09:46)
[2017-08-02] MEDS ORDERED: ASPEC325 PO (09:46)
--- NOTE | 2017-08-02 09:47 | Discharge Instructions ---
Discharge Instructions Date of Service Aug 02, 2017. Admission Reason for Admission: Right Knee Degenerative Joint Disease Discharge Discharge Diagnosis / Problem: Right Total Knee Discharge Goals Goal(s): Decrease discomfort, Improve function Activity Recommendations Activity Limitations: as noted below . Instructions / Follow-Up Instructions / Follow-Up Activity and Therapy Recommendations: * If you are using [facility] then Physical Therapy will be provided until they feel you are ready to start Outpatient Physical Therapy. If you are not using a Home Health agency then Outpatient Physical Therapy should start about 3-5 days from your day of surgery. Therapy will last about 6-10 weeks * It is important not to put a pillow under your knee when you are relaxing or sleeping. It is just as important to make sure you are getting your knee perfectly straight as it is to regain your knee bend. * You were shown a series of exercises in the hospital. Do these exercises three times each day including the exercises you were shown in physical therapy. * Get up and walk several times each day. For the first four weeks, try not to stand or walk for more than one hour at a time. If you do stand or walk for more than one hour, you will not hurt anything, but your leg will likely swell. * As you feel comfortable, you may change from the walker or crutches to a cane and then to independent walking. Medications: * Narcotic You will likely be sent home from the hospital with a prescription for the narcotic pain medication that worked best throughout your stay. * Aspirin Most patients will be required to take Aspirin 325mg twice a day for 6 weeks after surgery. This is obtained [id number] and a prescription is not necessary. * Other medications may be prescribed for specific circumstances. If you have any questions, please call the office at . * Resume previous home medications unless otherwise instructed TEDs/Elastic Stockings: The white elastic stockings help limit swelling and prevent blood clots from forming in your legs.~ The more you wear them, the more they work. Wear them for six weeks. Showering: You may shower 5 days from the day of surgery. Let the soapy shower water run over the power. Do not scrub or soak the incision. Things To Watch For: * Drainage from the incision site that occurs more than one week after your surgery. * Increased redness at the incision site. * Fever above 102 degrees Fahrenheit. * Unusual chest pain or shortness of breath. * Call [facility] at with any of the above problems Follow-Up Visit: Follow-up with Dr. Lemos 2-3 weeks after your day of surgery. An appointment was probably scheduled when you signed-up for surgery in the office. If you have any questions call Office Instructions: More detailed instructions as well as Frequently Asked Questions were provided in a folder by our office when you signed-up for surgery. Please review these instructions when you get home. If you have any further questions or concerns, please feel free to call the office at [phone] Current Hospital Diet Patient's current hospital diet: Regular Diet Discharge Diet Recommended Diet: Regular Diet Procedures Procedures Performed: Right Total Knee Arthroplasty Pending Studies Studies pending at discharge: no Medical Emergencies . Who to Call and When: Medical Emergencies: If at any time you feel your situation is an emergency, please call [phone] immediately. . Non-Emergent Contact Non-Emergency issues call your: Surgeon Call Non-Emergent contact if: wound has increased drainage, wound has increased redness . "Provider Documentation" section prepared by Andre Lemos. . VTE Core Measure Inpt VTE Proph given/why not?: Other Anticoagulation (Aspirin 325 twice a day for 6 weeks)
[2017-08-02 09:55] VITALS: BP 111/70; PULSE 61; TEMP 36.8; O2SAT 96
--- NOTE | 2017-08-02 10:05 | PROGRESS NOTE ---
DATE: 08/02/2017 CHIEF COMPLAINT: Status post right total knee arthroplasty, postop day #2. PROGRESS: Dunia was seen and examined at bedside today. Overall, she is doing very well. She has been up and ambulating well with physical therapy. Her pain is controlled. She has no complaints. PHYSICAL EXAMINATION: RIGHT KNEE: The dressing has been changed. She is lying with her knee in full extension. She has active dorsiflexion and plantarflexion of her right ankle. The incision is clean and dry. IMPRESSION: Status post right total knee arthroplasty, postop day #2. PLAN: At this point, she is doing very well and happy with her progress. She has been working well with physical therapy. Her pain is controlled. We will discharge her to home later today.
--- NOTE | 2017-08-02 10:17 | DISCHARGE SUMMARY ---
DISCHARGE DIAGNOSIS: Primary osteoarthritis of the right knee. PROCEDURE: Right total knee arthroplasty on 07/31/[address] Andre Lemos. DISCHARGE INSTRUCTIONS: 1. Aspirin 325 mg twice a day for 6 weeks. 2. Oxycodone 5-10 mg every 4 hours as needed for pain. 3. HCTZ 25 mg daily. 4. Synthroid 150 mcg daily. 5. Lisinopril 10 mg daily. 6. Ultram 50 mg q. 8 hours as needed. 7. Trazodone 50 mg at night. 8. Follow up with Dr. Lemos in 2 weeks. 9. Call the office of Dr. Lemos with any questions or concerns. HOSPITAL COURSE: Dunia is a pleasant 67-year-old female who presented to my office with complaints of chronic right knee pain. X-rays and clinical examination were diagnostic for primary osteoarthritis of the right knee. After failing conservative treatment, she elected to undergo a right total knee arthroplasty. On 07/31/2017, she arrived at the [facility] and underwent a right knee replacement without complications. She had a spinal anesthetic and a right adductor nerve block. Postoperatively, she was started on aspirin for DVT prophylaxis and discharged to general orthopedic floor. Her hospital course was uneventful. On postop day #1, her H&H was stable at 11.6 and 33.0. She has been up and ambulating well with physical therapy. Her pain is well controlled. On postop day #2, she continued to do well and she did stairs with physical therapy. She was subsequently discharged to home with the above instructions.
== END 2017-08-02 11:45 | disposition home health service (06) | DRG 470 ==
LOC: C.ACU 06:05 → C.3E 16:04 → ENRESERV 16:26
PROVIDERS: ADMIT Orthopaedic Surgery; ATTEND Orthopaedic Surgery
PROC: 0SRC0J9 Replacement of Right Knee Joint with Synthetic Substitute, Cemented, Open Approach (ICD-10-PCS; principal; 2017-07-31 09:20)
DX: M17.11 Unilateral primary osteoarthritis, right knee (principal); Z68.41 Body mass index [BMI] 40.0-44.9, adult; I10 Essential (primary) hypertension; E03.9 Hypothyroidism, unspecified; E66.9 Obesity, unspecified; Z96.652 Presence of left artificial knee joint; Z96.641 Presence of right artificial hip joint